=== PATIENT | female | born 1945 | race Caucasian/White ===

== ENCOUNTER → 2021-12-17 | Outpatient (CLI) | payer MEDICARE ==
[~2021-12-17] MED LIST: ULTRAM50 MG PO
== END ==
LOC: DX 08:20
PROVIDERS: ATTEND Internal Medicine Gastroenterology
DX: R19.8 Other specified symptoms and signs involving the digestive system and abdomen (principal); Z20.822 Contact with and (suspected) exposure to COVID-19
CPT/HCPCS: 74246; U0002